=== PATIENT | female | born 1935 | race Caucasian/White ===

== ENCOUNTER 2017-07-18 09:13 | Emergency (ER) | payer MEDICARE, MEDICAID ==
[~2017-07-18] VITALS: Ht 157.5 cm; Wt 72.6 kg
--- NOTE | 2017-07-18 09:20 | NUR ---
PT BIB DAUGHTER WITH C/O RASH ON FACE X3 DAYS BLUE SPLIT TRIMMER AFTER TAKING T[place]CE[place]. SEEN BY MD FOR EVAL. IV ACCESS STARTED. VSS. NO SOB NOTED. SAFETY AND COMFORT MEASURES PROVIDED. WILL MONITOR.
[2017-07-18] MEDS ORDERED: methylPREDNISolone SOD SUCC 125 MG/2ML VIAL ONE (09:27)
[2017-07-18] MEDS ORDERED: diphenhydrAMINE HCL 50 MG/ML VIAL ONE (09:27)
[2017-07-18] MEDS ORDERED: ONDANSETRON HCL/PF 4 MG/2 ML VIAL ONE (09:27)
[2017-07-18] MEDS ORDERED: FAMOTIDINE/PF INJ 20 MG/2 ML VIAL IV ONE ×2 (09:29→09:30)
[2017-07-18] MEDS ORDERED: diphenhydrAMINE HCL 50 MG/ML VIAL IV ONE (09:30)
[2017-07-18] MEDS ORDERED: ONDANSETRON HCL/PF 4 MG/2 ML VIAL IVP ONE (09:30)
[2017-07-18] MEDS ORDERED: methylPREDNISolone SOD SUCC 125 MG/2ML VIAL IV ONE (09:30)
--- NOTE | 2017-07-18 09:30 | NUR ---
MEDICATED ORDERED. LEGAL TRANSCRIBER AT FOR BLOOD DRAW.
[2017-07-18 09:49] LABS: BASOPHILS % (AUTO) 0.2 % (0.0-2.0); EOSINOPHILS # (AUTO) 0.1 /CMM (0.0-0.7); EOSINOPHILS % (AUTO) 0.9 % (0.0-6.0); HEMATOCRIT 43 % (33-45); HEMOGLOBIN 14.2 g/dL (11.5-14.8); MEAN CORPUSCULAR HEMOGLOBIN 29 PG (26.0-33.0); MEAN CORPUSCULAR HGB CONC 33 g/dl (31.0-36.0); MEAN CORPUSCULAR VOLUME 88 fL (82-100); MONOCYTES # (AUTO) 0.6 /CMM (0.1-1.30); MONOCYTES % (AUTO) 4.5 % (2.0-12.0); NEUTROPHILS # (AUTO) 10.3 /CMM (1.8-8.9); NEUTROPHILS % (AUTO) 79.4 % (43.0-81.0); PLATELET COUNT (AUTO) 161 /CMM (150-450); RDW COEFFICIENT OF VARIATION 13.7 (11.5-15.0); RED BLOOD CELL COUNT(AUTO) 4.91 MIL/uL (4.0-5.2)
[2017-07-18 10:00] LABS: CALCIUM, SERUM 9.5 mg/dL (8.5-10.1); CARBON DIOXIDE 26 mmol/L (21-32); CHLORIDE 101 mmol/L (98-107); CREATININE 1.1 mg/dL (0.6-1.3); GLUCOSE 92 mg/dL (74-106); POTASSIUM 3.6 mmol/L (3.5-5.1); SODIUM SERUM 139 mmol/L (136-145); UREA NITROGEN, BLOOD 12 mg/dL (7-18)
[2017-07-18 10:11] LABS: ALANINE AMINOTRANSFERASE 20 U/L (12-78); ALBUMIN 3.4 g/dL (3.4-5.0); ALKALINE PHOSPHATASE 86 U/L (46-116); ASPARTATE AMINOTRANSFERASE 22 U/L (15-37); BILIRUBIN,DIRECT 0.4 mg/dL (0.0-0.2); BILIRUBIN,TOTAL 2.9 mg/dL (0.2-1.0); TOTAL PROTEIN, SERUM 7.8 g/dL (6.4-8.2)
--- NOTE | 2017-07-18 10:31 | NUR ---
CALLED RUBIA JONES M.D. [phone] ONCOLOGIST
--- NOTE | 2017-07-18 11:26 | NUR ---
IV removed. Catheter intact and site benign. Pressure and 4x4 applied to site. No bleeding noted.
--- NOTE | 2017-07-18 11:26 | NUR ---
Patient discharged to home in stable condition. Written and verbal after care instructions given. Patient verbalizes understanding of instruction.
[2017-07-18 11:27] VITALS: BP 152/90
== END 2017-07-18 11:38 | disposition home or self-care (01) ==
LOC: ER 09:15
DX: B36.9 Superficial mycosis, unspecified (principal); T45.1X5A Adverse effect of antineoplastic and immunosuppressive drugs, initial encounter; Y92.89 Other specified places as the place of occurrence of the external cause; I10 Essential (primary) hypertension; F32.9 Major depressive disorder, single episode, unspecified; C78.00 Secondary malignant neoplasm of unspecified lung; Z85.528 Personal history of other malignant neoplasm of kidney; Z88.3 Allergy status to other anti-infective agents
CPT/HCPCS: 36415; 80048; 80076; 85025; 96374; 96375; 99284; A4606; J1200; J2405; J2930; J3490; Z7610

== ENCOUNTER 2017-07-27 12:09 | Emergency (ER) | payer MEDICARE, MEDICAID ==
[~2017-07-27] VITALS: Ht 160 cm; Wt 72.6 kg
[2017-07-27 12:20] VITALS: BP 176/76
== END 2017-07-27 12:40 | disposition home or self-care (01) ==
LOC: ER 12:13
DX: L23.9 Allergic contact dermatitis, unspecified cause (principal); F32.9 Major depressive disorder, single episode, unspecified; I10 Essential (primary) hypertension; Z85.118 Personal history of other malignant neoplasm of bronchus and lung; Z85.528 Personal history of other malignant neoplasm of kidney; Z88.8 Allergy status to other drugs, medicaments and biological substances
CPT/HCPCS: 99283; A4606; Z7610

== ENCOUNTER 2018-05-04 23:37 | Emergency (ER) | payer MEDICARE, MEDICAID ==
[~2018-05-04] VITALS: Ht 160 cm; Wt 75.3 kg
[2018-05-05 00:28] VITALS: BP 147/88
[2018-05-05] MEDS ORDERED: HYDROCODONE/APAP 5/325MG 1 EACH TABLET PO ONE (01:30)
[2018-05-05] MEDS ORDERED: HYDROCODONE/APAP 5/325MG 1 EACH TABLET ONE (01:31)
== END 2018-05-05 02:10 | disposition home or self-care (01) ==
LOC: ER 23:37
DX: M54.5 Low back pain (principal); M41.86 Other forms of scoliosis, lumbar region; M51.36 Other intervertebral disc degeneration, lumbar region; I10 Essential (primary) hypertension; F32.9 Major depressive disorder, single episode, unspecified; Z85.118 Personal history of other malignant neoplasm of bronchus and lung; Z85.528 Personal history of other malignant neoplasm of kidney; Z88.8 Allergy status to other drugs, medicaments and biological substances
CPT/HCPCS: 72100; 99284; A4606; Z7610

== ENCOUNTER 2023-10-24 22:03 | Inpatient (IN) | payer MEDICARE, OTHER ==
[~2023-10-24] VITALS: Ht 157.5 cm; Wt 81.6 kg
[2023-10-24] MEDS: ASPIRIN 81 MG TAB.CHEW PO ONE (22:12)
[2023-10-24 22:25] LABS: BASOPHILS % (AUTO) 0.4 % (0.0-2.0); EOSINOPHILS # (AUTO) 0.2 K/uL (0.0-0.7); EOSINOPHILS % (AUTO) 2.2 % (0.0-6.0); HEMATOCRIT 35 % (33-45); HEMOGLOBIN 11.7 g/dL (11.5-14.8); LYMPHOCYTES # (AUTO) 2.8 K/uL (0.8-4.8); MEAN CORPUSCULAR HEMOGLOBIN 29 PG (26.0-33.0); MEAN CORPUSCULAR HGB CONC 33 g/dl (31.0-36.0); MEAN CORPUSCULAR VOLUME 87 fL (82-100); MONOCYTES # (AUTO) 0.7 K/uL (0.1-1.30); MONOCYTES % (AUTO) 7.6 % (2.0-12.0); NEUTROPHILS # (AUTO) 4.9 K/uL (1.8-8.9); NEUTROPHILS % (AUTO) 56.8 % (43.0-81.0); PLATELET COUNT (AUTO) 215 K/uL (150-450); RED BLOOD CELL COUNT(AUTO) 4.06 MIL/uL (4.0-5.2); RED CELL DISTRIBUTION WIDTH 14.1 % (11.5-15.0); WHITE BLOOD COUNT (AUTO) 8.6 K/uL (4.3-11.0)
[2023-10-24 22:34] LABS: CALCIUM, SERUM 9.8 mg/dL (8.5-10.1); CARBON DIOXIDE 29 mmol/L (21-32); CHLORIDE 101 mmol/L (98-107); CREATININE 0.8 mg/dL (0.6-1.3); GLUCOSE 112 mg/dL (74-106); POTASSIUM 3.6 mmol/L (3.5-5.1); SODIUM SERUM 138 mmol/L (136-145); UREA NITROGEN, BLOOD 19 mg/dL (7-18)
[2023-10-25] MEDS ORDERED: LOSA1TAB39 PO (07:43)
[2023-10-25] MEDS ORDERED: ATOR40TA PO (07:43)
[2023-10-25] MEDS ORDERED: FOLI0.4T6 PO (07:43)
[2023-10-25] MEDS ORDERED: AMLO5TAB4 PO (07:43)
[2023-10-25 09:30] VITALS: BP 130/64; TEMP 96.8; O2SAT 98
[2023-10-25] MEDS ORDERED: ONDANSETRON HCL/PF 4 MG/2 ML VIAL IVP PRN (11:30)
[2023-10-25] MEDS ORDERED: MAGNESIUM HYDROXIDE 30 ML UDC PO PRN (11:30)
[2023-10-25] MEDS ORDERED: ZOLPIDEM TARTRATE 5 MG TABLET PO PRN (11:30)
[2023-10-25] MEDS ORDERED: MAG HYDROX/AL HYDROX/SIMETH 30 ML UDC PO PRN (11:30)
[2023-10-25] MEDS ORDERED: Z GUARD REMEDY 4 OZ OINT TP PRN (11:30)
[2023-10-25] MEDS: PANTOPRAZOLE 40 MG TABLET.DR PO SCH (11:48)
[2023-10-25] MEDS: ASPIRIN EC 81 MG TABLET.DR PO SCH (11:48)
[2023-10-25] MEDS: ENOXAPARIN SODIUM 40 MG/0.4 ML DISP.SYRIN SQ SCH (11:52)
[2023-10-25 12:00] VITALS: BP 120/57; TEMP 96.8; O2SAT 95
[2023-10-25 16:00] VITALS: BP 129/71; TEMP 96.8; O2SAT 97
[2023-10-25 17:07] LABS: THYROID STIMULATING HORMONE 2.666 uIU/mL (0.358-3.74)
[2023-10-25] MEDS: AMLODIPINE BESYLATE 5 MG TABLET PO SCH (17:07)
[2023-10-25] MEDS: FOLIC ACID 1 MG TABLET PO SCH (17:07)
[2023-10-25] MEDS: ATORVASTATIN 40 MG TABLET PO SCH (17:07)
[2023-10-25 20:00] VITALS: BP 139/67; TEMP 98; O2SAT 96
[2023-10-26] VITALS: BP 131/96; TEMP 97.9; O2SAT 95
[2023-10-26 04:00] VITALS: BP 132/65; TEMP 98; O2SAT 94
[2023-10-26] MEDS: IV NS 0.9% 1,000 ML IV PRN (05:18)
[2023-10-26] MEDS: ACETAMINOPHEN 325 MG TABLET PO PRN (07:24)
[2023-10-26 07:26] LABS: BASOPHILS % (AUTO) 0.5 % (0.0-2.0); EOSINOPHILS # (AUTO) 0.3 K/uL (0.0-0.7); EOSINOPHILS % (AUTO) 3.3 % (0.0-6.0); HEMATOCRIT 39 % (33-45); HEMOGLOBIN 13.1 g/dL (11.5-14.8); LYMPHOCYTES # (AUTO) 2.7 K/uL (0.8-4.8); LYMPHOCYTES % (AUTO) 34.8 % (20.0-44.0); MEAN CORPUSCULAR HEMOGLOBIN 29 PG (26.0-33.0); MEAN CORPUSCULAR HGB CONC 34 g/dl (31.0-36.0); MEAN CORPUSCULAR VOLUME 87 fL (82-100); MONOCYTES # (AUTO) 0.5 K/uL (0.1-1.30); MONOCYTES % (AUTO) 6.4 % (2.0-12.0); NEUTROPHILS # (AUTO) 4.2 K/uL (1.8-8.9); PLATELET COUNT (AUTO) 231 K/uL (150-450); RED BLOOD CELL COUNT(AUTO) 4.45 MIL/uL (4.0-5.2); WHITE BLOOD COUNT (AUTO) 7.7 K/uL (4.3-11.0)
[2023-10-26 07:46] LABS: ALANINE AMINOTRANSFERASE 14 U/L (12-78); ALBUMIN 3.2 g/dL (3.4-5.0); ALKALINE PHOSPHATASE 91 U/L (46-116); ASPARTATE AMINOTRANSFERASE 18 U/L (15-37); BILIRUBIN,DIRECT 0.1 mg/dL (0.0-0.2); BILIRUBIN,TOTAL 0.6 mg/dL (0.2-1.0); CALCIUM, SERUM 9.5 mg/dL (8.5-10.1); CARBON DIOXIDE 28 mmol/L (21-32); CHLORIDE 104 mmol/L (98-107); CREATININE 0.7 mg/dL (0.6-1.3); GLUCOSE 104 mg/dL (74-106); MAGNESIUM 1.9 mg/dL (1.8-2.4); POTASSIUM 3.9 mmol/L (3.5-5.1); SODIUM SERUM 141 mmol/L (136-145); TOTAL PROTEIN, SERUM 7.5 g/dL (6.4-8.2); UREA NITROGEN, BLOOD 16 mg/dL (7-18)
[2023-10-26 08:24] LABS: PHOSPHORUS 4.1 mg/dL (2.5-4.9)
[2023-10-26] MEDS: METOPROLOL TARTRATE 50 MG TABLET PO SCH (08:40)
[2023-10-26 08:57] VITALS: BP 120/67; TEMP 98; O2SAT 96
[2023-10-26] MEDS ORDERED: IOHEXOL-350 100 ML VIAL IV ONE (12:12)
[2023-10-26] MEDS ORDERED: NITROGLYCERIN 0.4 MG/TAB BOTTLE ONE (12:12)
[2023-10-26] MEDS ORDERED: IV NS 0.9% 250 ML IV ONE (12:12)
[2023-10-26] MEDS ORDERED: CT SWABBABLE VALVE TRANS SET 1 EA INFUS.SET MC ONE (12:12)
[2023-10-26] MEDS ORDERED: METOPROLOL TARTRATE INJ 5 MG/5 ML AMPUL IVP PRN (12:30)
[2023-10-26] MEDS: NITROGLYCERIN 0.4 MG/TAB BOTTLE SL ONE (12:43)
[2023-10-26 13:19] VITALS: BP 128/70; TEMP 98; O2SAT 96
[2023-10-26 17:17] VITALS: BP 120/60; TEMP 97.9; O2SAT 95
[2023-10-26 20:00] VITALS: BP 130/60; TEMP 98; O2SAT 96
[2023-10-27 00:53] VITALS: BP 108/54; TEMP 98; O2SAT 95
[2023-10-27 04:00] VITALS: BP 135/63; TEMP 98; O2SAT 94
[2023-10-27 06:58] LABS: BASOPHILS % (AUTO) 0.4 % (0.0-2.0); EOSINOPHILS # (AUTO) 0.3 K/uL (0.0-0.7); HEMATOCRIT 37 % (33-45); HEMOGLOBIN 12.3 g/dL (11.5-14.8); LYMPHOCYTES # (AUTO) 2.3 K/uL (0.8-4.8); LYMPHOCYTES % (AUTO) 25.1 % (20.0-44.0); MEAN CORPUSCULAR HEMOGLOBIN 29 PG (26.0-33.0); MEAN CORPUSCULAR HGB CONC 33 g/dl (31.0-36.0); MEAN CORPUSCULAR VOLUME 87 fL (82-100); MONOCYTES # (AUTO) 0.7 K/uL (0.1-1.30); MONOCYTES % (AUTO) 7.2 % (2.0-12.0); NEUTROPHILS # (AUTO) 5.9 K/uL (1.8-8.9); NEUTROPHILS % (AUTO) 64.3 % (43.0-81.0); PLATELET COUNT (AUTO) 212 K/uL (150-450); RED BLOOD CELL COUNT(AUTO) 4.24 MIL/uL (4.0-5.2); RED CELL DISTRIBUTION WIDTH 13.8 % (11.5-15.0); WHITE BLOOD COUNT (AUTO) 9.1 K/uL (4.3-11.0)
[2023-10-27 07:20] LABS: CALCIUM, SERUM 9.1 mg/dL (8.5-10.1); CARBON DIOXIDE 30 mmol/L (21-32); CHLORIDE 105 mmol/L (98-107); CREATININE 0.8 mg/dL (0.6-1.3); GLUCOSE 104 mg/dL (74-106); MAGNESIUM 1.7 mg/dL (1.8-2.4); POTASSIUM 4.1 mmol/L (3.5-5.1); SODIUM SERUM 141 mmol/L (136-145); UREA NITROGEN, BLOOD 20 mg/dL (7-18)
[2023-10-27 08:00] VITALS: BP 135/69; TEMP 98.1; O2SAT 93
[2023-10-27] MEDS ORDERED: MAGNESIUM OXIDE 400 MG TABLET PO ONE (08:30)
[2023-10-27] MEDS ORDERED: IV NS 0.9% 1,000 ML IV PRN (09:00)
[2023-10-27] MEDS: Magnesium 1GM/D5W 100ML PREMIX 100 ML IV SCH (10:28)
[2023-10-27 12:00] VITALS: BP 115/63; TEMP 97.7; O2SAT 93
[2023-10-27] MEDS ORDERED: IOHEXOL-300 100 ML VIAL IV ONE (14:13)
[2023-10-27] MEDS ORDERED: IV NS 0.9% 250 ML IV ONE (14:13)
[2023-10-27] MEDS ORDERED: CT SWABBABLE VALVE TRANS SET 1 EA INFUS.SET MC ONE (14:13)
[2023-10-27 16:00] VITALS: BP 110/52; TEMP 97.9; O2SAT 94
[2023-10-27 20:00] VITALS: BP 114/56; TEMP 97.9; O2SAT 95
[2023-10-28] VITALS: BP 111/56; TEMP 97.5; O2SAT 95
[2023-10-28 04:00] VITALS: BP 114/58; TEMP 97.7; O2SAT 95
[2023-10-28 07:08] LABS: BASOPHILS % (AUTO) 0.5 % (0.0-2.0); EOSINOPHILS # (AUTO) 0.3 K/uL (0.0-0.7); EOSINOPHILS % (AUTO) 3.1 % (0.0-6.0); HEMATOCRIT 34 % (33-45); HEMOGLOBIN 11.3 g/dL (11.5-14.8); LYMPHOCYTES # (AUTO) 2.2 K/uL (0.8-4.8); LYMPHOCYTES % (AUTO) 26.9 % (20.0-44.0); MEAN CORPUSCULAR HEMOGLOBIN 29 PG (26.0-33.0); MEAN CORPUSCULAR HGB CONC 34 g/dl (31.0-36.0); MEAN CORPUSCULAR VOLUME 87 fL (82-100); MONOCYTES # (AUTO) 0.5 K/uL (0.1-1.30); MONOCYTES % (AUTO) 6.7 % (2.0-12.0); NEUTROPHILS # (AUTO) 5.1 K/uL (1.8-8.9); NEUTROPHILS % (AUTO) 62.8 % (43.0-81.0); PLATELET COUNT (AUTO) 193 K/uL (150-450); RED BLOOD CELL COUNT(AUTO) 3.84 MIL/uL (4.0-5.2); RED CELL DISTRIBUTION WIDTH 13.8 % (11.5-15.0); WHITE BLOOD COUNT (AUTO) 8.1 K/uL (4.3-11.0)
[2023-10-28 07:30] LABS: ALANINE AMINOTRANSFERASE 14 U/L (12-78); ALBUMIN 2.8 g/dL (3.4-5.0); ALKALINE PHOSPHATASE 76 U/L (46-116); ASPARTATE AMINOTRANSFERASE 16 U/L (15-37); BILIRUBIN,TOTAL 0.4 mg/dL (0.2-1.0); CALCIUM, SERUM 8.8 mg/dL (8.5-10.1); CARBON DIOXIDE 29 mmol/L (21-32); CHLORIDE 106 mmol/L (98-107); CREATININE 0.8 mg/dL (0.6-1.3); GLUCOSE 104 mg/dL (74-106); PHOSPHORUS 3.6 mg/dL (2.5-4.9); POTASSIUM 3.7 mmol/L (3.5-5.1); SODIUM SERUM 141 mmol/L (136-145); TOTAL PROTEIN, SERUM 6.5 g/dL (6.4-8.2); UREA NITROGEN, BLOOD 20 mg/dL (7-18)
[2023-10-28 08:00] VITALS: BP 136/67; TEMP 98.6; O2SAT 94
[2023-10-28] MEDS ORDERED: METO50TA16 PO (09:15)
[2023-10-28] MEDS ORDERED: Aspirin Ec PO (09:15)
[2023-10-28 09:43] LABS: INR 0.99 (0.91-1.10); PROTHROMBIN TIME 10.5 SECS (9.2-11.1)
[2023-10-28 12:00] VITALS: BP 125/65; TEMP 97.9; O2SAT 96
[2023-10-28 16:00] VITALS: BP 136/60; TEMP 98.2; O2SAT 95
== END 2023-10-28 18:06 | disposition home or self-care (01) | DRG 303 ==
LOC: ER 22:15 → TRANSITION 10-25 07:05 → TELE1 10-25 07:37 → MEDSG1 10-28 13:31
PROVIDERS: ADMIT Nurse Practitioner Family; ATTEND Internal Medicine
DX: I25.10 Atherosclerotic heart disease of native coronary artery without angina pectoris (principal); E87.20 Acidosis, unspecified; C64.9 Malignant neoplasm of unspecified kidney, except renal pelvis; C78.00 Secondary malignant neoplasm of unspecified lung; G62.9 Polyneuropathy, unspecified; N81.4 Uterovaginal prolapse, unspecified; I10 Essential (primary) hypertension; Z66 Do not resuscitate; E78.5 Hyperlipidemia, unspecified; Z90.5 Acquired absence of kidney; F32.A Depression, unspecified; Z88.8 Allergy status to other drugs, medicaments and biological substances; Z79.899 Other long term (current) drug therapy; I70.8 Atherosclerosis of other arteries; M54.9 Dorsalgia, unspecified; G47.33 Obstructive sleep apnea (adult) (pediatric)
CPT/HCPCS: 36415; 71045-TC; 71260-TC; 75574; 76700-TC; 80048-TC; 80053-TC; 80061-TC; 80076-TC; 83735-TC; 84100-TC; 84443-TC; 84484-TC; 85025-TC; 85610-TC; 93307-TC; A4223; G0378; J1650; J3475; J7030; J7050; Q9967